=== PATIENT | female | born 1995 | race Caucasian/White ===

== ENCOUNTER → 2022-09-30 | Outpatient (CLI) | payer OTHER ==
[2022-09-30 14:07] LABS: HEMATOCRIT 37.2 % (36.0-47.0); HEMOGLOBIN 12.3 g/dl (12.0-15.5); MEAN CORPUSCULAR HEMOGLOBIN 32.8 pg (27.0-33.0); MEAN CORPUSCULAR HGB CONC 33.1 g/dl (32.0-36.5); MEAN CORPUSCULAR VOLUME 99.2 fl (80.0-96.0); PLATELET COUNT, AUTOMATED 247 10^3/uL (150-450); RED BLOOD COUNT 3.75 10^6/uL (4.00-5.40); WHITE BLOOD COUNT 15.4 10^3/uL (4.0-10.0)
[2022-09-30 15:08] LABS: HIV 1&2 SCREEN CENTAUR NEGATIVE (NEGATIVE)
[2022-10-01 16:15] LABS: GC DNA AMPLIFICATION NEGATIVE (NEGATIVE)
== END ==
LOC: M PLALAB 11:02
PROVIDERS: ATTEND Advanced Practice Midwife
DX: Z34.82 Encounter for supervision of other normal pregnancy, second trimester (principal)

== ENCOUNTER 2022-11-03 06:30 | Outpatient (CLI) | payer OTHER ==
[~2022-11-03] VITALS: Ht 162.6 cm; Wt 115.4 kg
[2022-11-03 06:48] VITALS: BP 124/62
[2022-11-03] MEDS ORDERED: ACETAMINOPHEN 500 MG TAB PO PRN (07:25)
[2022-11-03 07:35] VITALS: BP 106/59
[2022-11-03 07:43] LABS: BASO % 0.3 % (0.0-1.0); EOS # 0.1 10^3/uL (0.0-0.5); EOS % 0.6 % (0.0-3.0); HEMATOCRIT 34.6 % (36.0-47.0); HEMOGLOBIN 11.4 g/dl (12.0-15.5); LYMPH # 2.1 10^3/uL (1.5-5.0); MEAN CORPUSCULAR HEMOGLOBIN 32.5 pg (27.0-33.0); MEAN CORPUSCULAR HGB CONC 32.9 g/dl (32.0-36.5); MEAN CORPUSCULAR VOLUME 98.6 fl (80.0-96.0); MONO # 0.9 10^3/uL (0.0-0.8); NEUTROPHILS # 9.3 10^3/uL (1.5-8.5); NEUTROPHILS % 74.5 % (36.0-66.0); PLATELET COUNT, AUTOMATED 227 10^3/uL (150-450); RED BLOOD COUNT 3.51 10^6/uL (4.00-5.40); WHITE BLOOD COUNT 12.5 10^3/uL (4.0-10.0)
[2022-11-03] MEDS ORDERED: TUMS500C PO (07:45)
[2022-11-03] MEDS ORDERED: PRENTAB9 PO (07:45)
[2022-11-03] MEDS ORDERED: ACET500P3 PO (07:45)
[2022-11-03 08:00] LABS: LIPASE 24 U/L (12-53)
[2022-11-03 08:03] LABS: APPEARANCE, URINE HAZY (CLEAR); BACTERIA, URINE AUTO NEGATIVE (NEGATIVE); BILIRUBIN, URINE AUTO NEGATIVE (NEGATIVE); BLOOD, URINE BLOOD NEGATIVE (NEGATIVE); COLOR, URINE YELLOW (YELLOW); GLUCOSE, URINE (UA) AUTO NEGATIVE (NEGATIVE); KETONE, URINE AUTO NEGATIVE (NEGATIVE); LEUKOCYTE ESTERASE, URINE AUTO NEGATIVE (NEGATIVE); MUCUS, URINE SMALL (NEGATIVE); NITRITE, URINE AUTO NEGATIVE (NEGATIVE); PROTEIN, URINE AUTO 1+ mg/dL (NEGATIVE); RBC, URINE AUTO 1 /HPF (0-3); SPECIFIC GRAVITY URINE AUTO 1.017 (1.002-1.035); SQUAMOUS EPITHELIAL CELL UR AU 14 /HPF (0-6); UROBILINOGEN, URINE AUTO 0.2 mg/dL (0.0-2.0); WBC, URINE AUTO 1 /HPF (0-3)
[2022-11-03 08:03] LABS: ALBUMIN 2.8 G/DL (3.2-5.2); ALKALINE PHOSPHATASE 70 U/L (46-116); ALT/SGPT 13 U/L (7.0-40); AST/SGOT 10 U/L (<34); BILIRUBIN,TOTAL 0.2 MG/DL (0.3-1.2); BLOOD UREA NITROGEN 9 MG/DL (9-23); CALCIUM LEVEL 9.9 MG/DL (8.5-10.1); CARBON DIOXIDE LEVEL 22 MMOL/L (20-31); CHLORIDE LEVEL 107 MMOL/L (98-107); CREATININE FOR GFR 0.55 MG/DL (0.55-1.30); GLOMERULAR FILTRATION RATE > 60.0 (>60); GLUCOSE, FASTING 103 MG/DL (60-100); SODIUM LEVEL 137 MMOL/L (136-145); TOTAL PROTEIN 6.1 G/DL (5.7-8.2)
[2022-11-03] MEDS ORDERED: BICITRA 30ML SOLN UDC PO ONE (09:40)
== END 2022-11-03 09:55 | disposition home or self-care (01) ==
LOC: M LDO 06:30
PROVIDERS: ATTEND Obstetrics & Gynecology
DX: O26.892 Other specified pregnancy related conditions, second trimester (principal); R10.31 Right lower quadrant pain; Z3A.24 24 weeks gestation of pregnancy
CPT/HCPCS: 36415; 59025; 76700; 76815; 76817; 80053; 81001; 83690; 85025; G0463

== ENCOUNTER → 2023-01-08 | Outpatient (CLI) | payer OTHER ==
[~2023-01-08] MED LIST: ACET500P3 PO; PRENTAB9 PO; TUMS500C PO
== END ==
LOC: M RAD 16:20
PROVIDERS: ATTEND Advanced Practice Midwife
DX: O24.419 Gestational diabetes mellitus in pregnancy, unspecified control (principal); Z3A.33 33 weeks gestation of pregnancy

== ENCOUNTER 2023-02-10 12:11 | Inpatient (IN) | payer OTHER ==
[~2023-02-10] VITALS: Ht 162.6 cm; Wt 120.8 kg
[2023-02-10] VITALS (13 sets, daily range): BP systolic 130–181; BP diastolic 65–101
[2023-02-10] MEDS ORDERED: HUMU1INJ2 SQ (12:56)
[2023-02-10] MEDS ORDERED: SERT25TA21 PO (13:31)
[2023-02-10] MEDS ORDERED: UNIS25TA3 PO (13:31)
[2023-02-10] MEDS ORDERED: PYRI50TA41 PO (13:31)
[2023-02-10] MEDS ORDERED: HOME MED LIST COMPLETE! XX SCH (13:35)
[2023-02-10 14:10] LABS: HEMATOCRIT 36.1 % (36.0-47.0); MEAN CORPUSCULAR HEMOGLOBIN 32.2 pg (27.0-33.0); MEAN CORPUSCULAR HGB CONC 33.2 g/dl (32.0-36.5); MEAN CORPUSCULAR VOLUME 96.8 fl (80.0-96.0); PLATELET COUNT, AUTOMATED 198 10^3/uL (150-450); RED BLOOD COUNT 3.73 10^6/uL (4.00-5.40)
[2023-02-10] MEDS ORDERED: METHYLERGONOVINE MALEATE 0.2MG/ML 1ML VIAL IM PRN (14:55)
[2023-02-10] MEDS ORDERED: CARBOPROST TROMETHAMINE 250 MCG/ML AMP IM PRN (14:55)
[2023-02-10] MEDS ORDERED: OXYTOCIN DRIP 30 UNITS in IV 1 EA IV PRN ×4 (14:55)
[2023-02-10] MEDS ORDERED: miSOPROStol 50MCG 1/2 TABLET SL ONE (14:55)
[2023-02-10] MEDS ORDERED: TRANEXAMIC ACID INJection 1,000 MG in NS 100 ML IV PRN (14:55)
[2023-02-10] MEDS: NS 1,000 ML IV SCH ×2 (15:20→23:20)
[2023-02-10] MEDS: INSULIN LISPRO (NovoLOG) PER UNIT SC SCH ×4 (16:25→22:41)
[2023-02-10] MEDS: miSOPROStol 50MCG 1/2 TABLET PO SCH (19:57)
[2023-02-10] MEDS ORDERED: CALCIUM CARBONATE 500 MG CHEW U/D PO ONE (20:50)
[2023-02-10] MEDS ORDERED: LABETALOL 100MG/20ML VIAL IV STA (23:17)
[2023-02-11] VITALS (38 sets, daily range): BP systolic 120–164; BP diastolic 56–97
[2023-02-11] MEDS: INSULIN LISPRO (NovoLOG) PER UNIT SC SCH ×10 (00:40→18:00)
[2023-02-11] MEDS: miSOPROStol 50MCG 1/2 TABLET PO SCH ×3 (01:11→06:00)
[2023-02-11 08:46] LABS: TOTAL PROTEIN,RANDOM URINE 20.6 MG/DL (0.0-14.0)
[2023-02-11 08:51] LABS: CREATININE,RANDOM URINE 164.6 MG/DL
[2023-02-11] MEDS ORDERED: OXYTOCIN DRIP 30 UNITS in IV 1 EA IV SCH (09:05)
[2023-02-11] MEDS: NS 1,000 ML IV SCH ×2 (09:23→16:23)
[2023-02-11 09:31] LABS: HEMATOCRIT 34.1 % (36.0-47.0); HEMOGLOBIN 11.4 g/dl (12.0-15.5); MEAN CORPUSCULAR HEMOGLOBIN 32.2 pg (27.0-33.0); MEAN CORPUSCULAR HGB CONC 33.4 g/dl (32.0-36.5); MEAN CORPUSCULAR VOLUME 96.3 fl (80.0-96.0); PLATELET COUNT, AUTOMATED 180 10^3/uL (150-450); RED BLOOD COUNT 3.54 10^6/uL (4.00-5.40); WHITE BLOOD COUNT 10.3 10^3/uL (4.0-10.0)
[2023-02-11 09:54] LABS: LDH LACTATE DEHYDROGENASE 143 U/L (120-246)
[2023-02-11 09:55] LABS: ALBUMIN 2.5 G/DL (3.2-5.2); ALKALINE PHOSPHATASE 129 U/L (46-116); ALT/SGPT 17 U/L (7.0-40); AST/SGOT 14 U/L (<34); BILIRUBIN,TOTAL 0.4 MG/DL (0.3-1.2); BLOOD UREA NITROGEN 9 MG/DL (9-23); CALCIUM LEVEL 8.9 MG/DL (8.5-10.1); CARBON DIOXIDE LEVEL 19 MMOL/L (20-31); CHLORIDE LEVEL 107 MMOL/L (98-107); CREATININE FOR GFR 0.51 MG/DL (0.55-1.30); GLOMERULAR FILTRATION RATE > 60.0 (>60); GLUCOSE, FASTING 143 MG/DL (60-100); POTASSIUM SERUM 3.6 MMOL/L (3.5-5.1); SODIUM LEVEL 139 MMOL/L (136-145); TOTAL PROTEIN 5.6 G/DL (5.7-8.2)
[2023-02-11] MEDS ORDERED: NS 1,000 ML IV ONE (16:05)
[2023-02-11] MEDS ORDERED: FENTANYL/ROPIVACAINE/NACL BAG 100 ML EPIDURAL SCH (16:45)
[2023-02-11] MEDS ORDERED: diphenhydrAMINE 50MG/ML VIAL IV PRN (16:45)
[2023-02-11] MEDS ORDERED: ONDANSETRON 4MG 2ML VIAL IV PRN (16:45)
[2023-02-11] MEDS ORDERED: NALOXONE INJ 0.4MG/1ML VIAL IV PRN (16:45)
[2023-02-11] MEDS ORDERED: ePHEDrine SULFATE 25 MG/5 ML(5MG/ML) SYRINGE IVP PRN (16:45)
[2023-02-11] MEDS ORDERED: LR 500 ML IV PRN (16:45)
[2023-02-11] MEDS ORDERED: EPIDURAL/PCA KEYS XX PRN (16:45)
[2023-02-12] VITALS (9 sets, daily range): BP systolic 100–147; BP diastolic 54–91; O2SAT 98
[2023-02-12] MEDS ORDERED: ONDANSETRON 4MG 2ML VIAL IV PRN (02:55)
[2023-02-12] MEDS ORDERED: DIBUCAINE 1% OINTMENT 30GM TOP PRN (02:55)
[2023-02-12] MEDS ORDERED: RHOGAM 300MCG (1500IU) INJ IM SCH (02:55)
[2023-02-12] MEDS ORDERED: DOCUSATE SODIUM 100MG CAPSULE PO PRN (02:55)
[2023-02-12] MEDS ORDERED: OXYTOCIN DRIP 30 UNITS in IV 1 EA IV SCH (02:55)
[2023-02-12] MEDS ORDERED: METOCLOPRAMIDE INJ 10MG/2ML VIAL IV PRN (02:55)
[2023-02-12] MEDS ORDERED: METHYLERGONOVINE MALEATE 0.2MG/ML 1ML VIAL IM PRN (02:55)
[2023-02-12] MEDS: NS 1,000 ML IV SCH (03:01)
[2023-02-12 04:06] LABS: CORD GAS ABE A -9.9; CORD GAS HCO3 A 19.2 MMOL/L; CORD GAS O2 SAT A 92.9 %; CORD GAS PCO2 A 53.4 mmHg; CORD GAS PH A 7.174 UNITS; CORD GAS PO2 A 59.9 mmHg; CORD GAS SBC A 16.8 MMOL/L; CORD GAS TCO2 A 20.9 MMOL/L
[2023-02-12 04:07] LABS: CORD GAS ABE V -7.7; CORD GAS HCO3 V 18.9 MMOL/L; CORD GAS O2 SAT V 94.4 %; CORD GAS PCO2 V 42.3 mmHg; CORD GAS PH V 7.269 UNITS; CORD GAS PO2 V 61.3 mmHg; CORD GAS SBC V 18.4 MMOL/L; CORD GAS TCO2 V 20.2 MMOL/L
[2023-02-12] MEDS: IBUPROFEN 800 MG TAB PO SCH ×3 (04:09→20:58)
[2023-02-12] MEDS: ACETAMINOPHEN 500 MG TAB PO SCH ×4 (04:09→21:00)
[2023-02-12] MEDS ORDERED: PRENATAL VITAMINS CHEWABLE TABLET PO SCH (09:00)
[2023-02-12] MEDS: PRENATAL VITAMINS CHEWABLE TABLET PO SCH (09:04)
[2023-02-12] MEDS: SERTRALINE HCL 25 MG TABLET PO SCH (09:04)
[2023-02-13] MEDS: IBUPROFEN 800 MG TAB PO SCH ×2 (04:00→11:57)
[2023-02-13] MEDS: ACETAMINOPHEN 500 MG TAB PO SCH ×2 (04:25→09:46)
[2023-02-13 06:00] VITALS: BP 139/84; O2SAT 99
[2023-02-13 07:04] LABS: HEMATOCRIT 26.3 % (36.0-47.0); MEAN CORPUSCULAR HEMOGLOBIN 32.5 pg (27.0-33.0); MEAN CORPUSCULAR HGB CONC 33.1 g/dl (32.0-36.5); MEAN CORPUSCULAR VOLUME 98.1 fl (80.0-96.0); PLATELET COUNT, AUTOMATED 184 10^3/uL (150-450); RED BLOOD COUNT 2.68 10^6/uL (4.00-5.40); WHITE BLOOD COUNT 13.7 10^3/uL (4.0-10.0)
[2023-02-13 07:06] LABS: HEMOGLOBIN 8.7 g/dl (12.0-15.5)
[2023-02-13] MEDS: PRENATAL VITAMINS CHEWABLE TABLET PO SCH (08:28)
[2023-02-13] MEDS: SERTRALINE HCL 25 MG TABLET PO SCH (08:28)
[2023-02-14] MEDS ORDERED: MEASLES,MUMPS,RUBELLA VACCINE INJ (MMR-II) SC.IMMUN ONE (09:00)
== END 2023-02-13 13:20 | disposition home or self-care (01) | DRG 806 ==
LOC: M LDI 12:11 → M OBS 02-12 04:49
PROVIDERS: ADMIT Advanced Practice Midwife; ATTEND Advanced Practice Midwife
PROC: 3E033VJ Introduction of Other Hormone into Peripheral Vein, Percutaneous Approach (ICD-10-PCS; 2023-02-10)
PROC: 3E0P7GC Introduction of Other Therapeutic Substance into Female Reproductive, Via Natural or Artificial Opening (ICD-10-PCS; 2023-02-10)
PROC: 10E0XZZ Delivery of Products of Conception, External Approach (ICD-10-PCS; principal; 2023-02-12)
DX: O24.414 Gestational diabetes mellitus in pregnancy, insulin controlled (principal); Z37.0 Single live birth; Z68.41 Body mass index [BMI] 40.0-44.9, adult; Z3A.39 39 weeks gestation of pregnancy; E66.01 Morbid (severe) obesity due to excess calories; O99.214 Obesity complicating childbirth; F32.9 Major depressive disorder, single episode, unspecified; O99.344 Other mental disorders complicating childbirth; Z79.899 Other long term (current) drug therapy